=== PATIENT | male | born 1995 | race American Indian/Alaskan Native ===

== ENCOUNTER 2017-07-13 15:56 | Emergency (ER) | payer SELFPAY ==
[2017-07-13] MEDS ORDERED: MORPHINE IV ONE (16:37)
[2017-07-13 16:46] VITALS: BP 125/61
--- NOTE | 2017-07-13 16:57 | XRay Report ---
RIGHT SHOULDER RADIOGRAPHS INDICATION: Right shoulder dislocation, pain. COMPARISON: None similar. FINDINGS: Frontal and attempted Y views of the right shoulder suggest anteroinferior glenohumeral dislocation. No apparent fracture. Intact AC articulation. Normal imaged lung and ribs. CONCLUSION: Right shoulder dislocation, as described. Thank you for the opportunity to participate in this patient's care.
--- NOTE | 2017-07-13 17:03 | Emergency Department Report ---
ED Upper Extremity Inj HPI - General Chief Complaint: Shoulder Injury Stated Complaint: RT SHOULDER Time Seen by Provider: 07/13/17 16:21 Source: patient Mode of arrival: Ambulatory Limitations: No Limitations - History of Present Illness Initial Comments: 21-year-old male who is injured his right shoulder reaching behind himself. No history of shoulder dislocation the past. No numbness tingling. Able to move all digits. Complaint: Injury to:: right -: Sudden Other Extremity Injury: Shoulder: Right Other Injuries: none Handedness: right Place: home Improves With: none Worsens With: none Context: other Associated Symptoms: heard/felt popping sensat. denies: weakness, numbness, neck pain, suspects foreign body, nausea/vomiting Treatments Prior to Arrival: cold therapy - Related Data Previous Rx's Medication Instructions Recorded Last Taken Type Ibuprofen [Motrin] 600 mg PO Q8H PRN #30 tablet 07/13/17 Unknown Rx Allergies Allergy/AdvReac Type Severity Reaction Status Date / Time No Known Allergies Allergy Verified 07/13/17 16:09 ED Review of Systems ROS: Stated complaint: RT SHOULDER Other details as noted in HPI Constitutional: denies: chills, fever Respiratory: denies: see HPI, cough Cardiovascular: denies: chest pain, palpitations Musculoskeletal: denies: back pain, joint swelling, arthralgia Neurological: denies: headache, weakness, numbness Psychiatric: denies: anxiety, depression ED Past Medical Hx - Past Medical History Previous Medical History?: No Hx Asthma: No Hx Dementia: No - Surgical History Past Surgical History?: No - Social History Smoking Status: Current Every Day Smoker Substance Use Type: Alcohol, Marijuana - Medications Home Medications: Home Medications Medication Instructions Recorded Confirmed Last Taken Type Ibuprofen [Motrin] 600 mg PO Q8H PRN #30 tablet 07/13/17 Unknown Rx ED Physical Exam - General Limitations: No Limitations General appearance: alert, in no apparent distress - Head Head exam: Present: atraumatic, normocephalic - Eye Eye exam: Present: normal appearance - Neck Neck exam: Absent: tenderness, lymphadenopathy - Respiratory Respiratory exam: Present: normal lung sounds bilaterally, respiratory distress - Cardiovascular Cardiovascular Exam: Present: regular rate, normal rhythm - Extremities Exam Extremities exam: Present: normal capillary refill - Expanded Upper Extremity Exam Right Shoulder Exam: Present: tenderness, deformity Elbow exam: Present: normal inspection, full ROM, tenderness Hand Wrist exam: Present: normal inspection, full ROM Neurosensory exam: Present: radial nerve intact, ulnar nerve intact, median nerve intact - Neurological Exam Neurological exam: Present: alert, oriented X3 - Psychiatric Psychiatric exam: Present: normal affect ED Course Vital Signs 07/13/17 07/13/17 16:05 16:30 Temperature 98.3 F 98.1 F Pulse Rate 53 L 52 L Respiratory 18 14 Rate Blood Pressure 136/87 Blood Pressure 125/61 [Left] O2 Sat by Pulse 98 Oximetry - Orthopedic Joint Reduction Joint #1 Consent Obtained: verbal consent Time Out Performed: Yes Side: right Joint Reduction Location: shoulder Analgesia: other (morphine 4 mg IV) Shoulder Technique Used (if applicable): scapula manipulation Post-Reduction Neuro Exam: intact Post-Reduction Vascular Exam: intact Post Reduction X-Ray Obtained: Yes Splint Applied: Yes Patient Tolerated Procedure: well ED Medical Decision Making - Medical Decision Making Patient is a 21-year-old male with obvious shoulder dislocation. Patient was medicated with 4 mg of IM morphine and placed in the prone position. His arm is hanging off the bed. I discussed plan to reduce the shoulder with scapular manipulation. Shoulder reduced quickly with scapular manipulation. Patient be placed in sling and will follow up with orthopedics as an outpatient. X-rays reviewed patient's shoulder reduced. Portions of this chart were dictated with dictation software. There may be dictation errors contained within this note. Critical care attestation.: If time is entered above; I have spent that time in minutes in the direct care of this critically ill patient, excluding procedure time. ED Disposition Clinical Impression: Shoulder dislocation Disposition: - TO HOME OR SELFCARE Is pt being admited?: No Condition: Stable Instructions: Shoulder Dislocation (ED) Prescriptions: Ibuprofen [Motrin] 600 mg PO Q8H PRN #30 tablet PRN Reason: Pain Referrals: HELEN NAYLOR MD [Staff Physician] - 3-5 Days
--- NOTE | 2017-07-14 07:38 | XRay Report ---
RIGHT SHOULDER: History: Postreduction film. Dislocation. Findings: Only a single portable AP view of the right shoulder is presented. The anterior, inferior dislocation at the right glenohumeral joint has been reduced since 1630 hrs. No obvious fracture on this single view. Impression: Successful reduction of the right shoulder dislocation.
== END 2017-07-13 17:40 | disposition home or self-care (01) ==
LOC: ED 15:56
DX: S43.004A Unspecified dislocation of right shoulder joint, initial encounter (principal); F17.200 Nicotine dependence, unspecified, uncomplicated; F12.10 Cannabis abuse, uncomplicated; X58.XXXA Exposure to other specified factors, initial encounter; Y93.9 Activity, unspecified; Y92.9 Unspecified place or not applicable; Y99.9 Unspecified external cause status
CPT/HCPCS: 23650; 73030; 96374; 99284; J2270

== ENCOUNTER 2017-09-11 17:08 | Emergency (ER) | payer SELFPAY ==
[2017-09-11 17:16] VITALS: BP 121/74
--- NOTE | 2017-09-11 18:03 | Emergency Department Report ---
ED Upper Extremity Inj HPI - General Chief Complaint: Extremity Injury, Upper Stated Complaint: RIGHT SHOULDER PAIN Source: patient Mode of arrival: Ambulatory Limitations: No Limitations - History of Present Illness Complaint: Injury to:: right -: Gradual, month(s) Other Extremity Injury: Shoulder: Right Other Injuries: none (NONE TODAY) Handedness: right Place: home Improves With: none Worsens With: movement of extremity Associated Symptoms: denies other symptoms - Related Data Previous Rx's Medication Instructions Recorded Last Taken Type Ibuprofen [Motrin] 600 mg PO Q8H PRN #30 tablet 07/13/17 Unknown Rx Allergies Allergy/AdvReac Type Severity Reaction Status Date / Time No Known Allergies Allergy Verified 07/13/17 16:09 ED Review of Systems ROS: Stated complaint: RIGHT SHOULDER PAIN Other details as noted in HPI Comment: All other systems reviewed and negative Musculoskeletal: as per HPI ED Past Medical Hx - Past Medical History Hx Asthma: No Hx Dementia: No - Surgical History Past Surgical History?: No - Social History Smoking Status: Current Every Day Smoker Substance Use Type: Marijuana - Medications Home Medications: Home Medications Medication Instructions Recorded Confirmed Last Taken Type Ibuprofen [Motrin] 600 mg PO Q8H PRN #30 tablet 07/13/17 Unknown Rx ED Physical Exam - General Limitations: No Limitations General appearance: alert - Head Head exam: Present: normocephalic - Eye Eye exam: Present: normal appearance - ENT ENT exam: Present: mucous membranes moist - Neck Neck exam: Present: normal inspection - Respiratory Respiratory exam: Present: normal lung sounds bilaterally - Cardiovascular Cardiovascular Exam: Present: regular rate - GI/Abdominal GI/Abdominal exam: Present: soft, normal bowel sounds. Absent: distended, tenderness, guarding, rebound, rigid, diminished bowel sounds, hyperactive bowel sounds, hypoactive bowel sounds, organomegaly, mass, bruit, pulsatile mass , hernia - Rectal Rectal exam: Present: deferred - exam: Absent: testicular tenderness, urethral discharge, scrotal swelling, vertical testicular lie, circumcision, other (NO DYSURIA. NO CONCERN FOR STD) - Extremities Exam Extremities exam: Present: normal inspection, full ROM, normal capillary refill. Absent: tenderness - Back Exam Back exam: Present: normal inspection - Neurological Exam Neurological exam: Present: alert, oriented X3, normal gait - Psychiatric Psychiatric exam: Present: normal affect, normal mood - Skin Skin exam: Present: warm, dry, intact ED Course Vital Signs 09/11/17 17:11 Temperature 98.4 F Pulse Rate 59 L Respiratory 16 Rate Blood Pressure 121/74 O2 Sat by Pulse 97 Oximetry - Reevaluation(s) Reevaluation #1: 09/11/17 18:32 TO ER TODAY FROM WORK W CO OF R SHOULDER PAIN IN THE AM TRIAGE WHEN HE GOT TO PROVIDER HE SAID HE WAS HERE TO FIGURE OUT WHY HIS SHOULDER KEEPS POPPING OUT THE SHOULDER IS NOT HURTING NOW HE HAS NEVER FOLLOWED UP WE DISCUSSED ORTHO/ MRI ETC AND WE PROCEEDED TO DC WHEN RN WENT TO DC THE PT HE CO N/V THERE IS NO CO OF N/V ON TRIAGE SHEET. HE TOLD RN THAT HE CAN NOT HAVE NOT FOR WORK W N/V ON IT. THE PROVIDER RE-INTERVIEWED PT AND SEVERAL TIMES HE CHANGED HIS STORY ABOUT THE N/V AND HE SAID IT WAS YEST AND THEN HE SAID TOD AY AFTER EATING HIS MOMS GREASY NECK BONE SOUP. ABD EXAM WNL SNT HR N BP WNL NO FEVER NO CVA PT HAS BEEN IN ER COUPLE HOURS AND HAS HAD NO N/V AFTER LONG DISCUSSION PT DC HOME W FOLLOW UP PLAN ED Medical Decision Making - Medical Decision Making SEE NOTE - Differential Diagnosis ACUTE VS CHRONIC SHOULDER PAIN Critical care attestation.: If time is entered above; I have spent that time in minutes in the direct care of this critically ill patient, excluding procedure time. ED Disposition Clinical Impression: Shoulder pain Disposition: DC-01 TO HOME OR SELFCARE Is pt being admited?: No Does the pt Need Aspirin: No Condition: Stable Instructions: Shoulder Dislocation (ED) Additional Instructions: USE CAUTION WE DISCUSSED WITH SHOULDER THAT IS KNOWN TO POP OUT MOTRIN FOR PAIN FOLLOW UP ORTHO FOR DEFINITIVE CARE IF N/V RETURNS FOLLOW UP HERE OR AT THE PCP Referrals: HELEN NAYLOR MD [Staff Physician] - 3-5 Days Forms: Work/School Release Form(ED) Time of Disposition: 18:03
== END 2017-09-11 18:45 | disposition home or self-care (01) ==
LOC: ED 17:08
DX: M25.511 Pain in right shoulder (principal); F17.210 Nicotine dependence, cigarettes, uncomplicated; F12.10 Cannabis abuse, uncomplicated
CPT/HCPCS: 99282

== ENCOUNTER 2017-12-18 11:59 | Emergency (ER) | payer SELFPAY ==
--- NOTE | 2017-12-18 12:49 | XRay Report ---
XRAY RIGHT SHOULDER 2 VIEWS: 12/18/17 11:59:00 CLINICAL: Right shoulder pain. History of dislocation. COMPARISON: 07/13/17 FINDINGS: The femoral head is dislocated anteriorly and inferiorly. No fracture. Normal acromioclavicular joint. The soft tissues. IMPRESSION: Anterior shoulder dislocation with no fracture.
[2017-12-18] MEDS ORDERED: XYLOCAINE 1% 20 mL ONE (13:38)
[2017-12-18] MEDS ORDERED: XYLOCAINE 1% MPF 5 mL INFILTRATI ONE (13:51)
--- NOTE | 2017-12-18 14:04 | Emergency Department Report ---
Upper Extremity - HPI Chief Complaint: Extremity Injury, Upper Stated Complaint: RIGHT SHOULDER DISLOCATION Time Seen by Provider: 12/18/17 13:34 Upper Extremity: Right Shoulder Occurred When: Today Mechanism: Hyperextension Severity: moderate Symptoms: Yes Pain with Movement, Yes Deformity, Yes Limited Range of Movement, No Numbness, No Weakness, No Swelling, No Bruising/Ecchymosis, No Laceration or Abrasion Other History: Healthy 21-year-old male with history of recurrent anterior shoulder dislocation. He was laying on his hands while in bed. When he sneezed , his shoulder dislocated at 9:30 AM. Moderate pain. No numbness. No weakness. ED Review of Systems ROS: Stated complaint: RIGHT SHOULDER DISLOCATION Other details as noted in HPI Comment: All other systems reviewed and negative Respiratory: denies: cough Cardiovascular: denies: chest pain ED Past Medical Hx - Past Medical History Previous Medical History?: No Hx Asthma: No Hx Dementia: No - Surgical History Past Surgical History?: No - Social History Smoking Status: Never Smoker Substance Use Type: None - Medications Home Medications: Home Medications Medication Instructions Recorded Confirmed Last Taken Type Ibuprofen [Motrin] 600 mg PO Q8H PRN #30 tablet 07/13/17 Unknown Rx Doxycycline [Vibramycin CAP] 100 mg PO Q12HR #14 capsule 09/26/17 Unknown Rx Levofloxacin [Levaquin TAB] 500 mg PO QDAY #7 tablet 09/26/17 Unknown Rx Upper Extremity Exam - Exam General: Vital signs noted. No distress. Alert and acting appropriately. Head and Torso: No HEENT Abnormality, No Neck Tenderness, No Chest/Lungs Abnormality, No Abdominal Tenderness, No Back Tenderness Shoulder Exam: Yes Shoulder Deformity, No Shoulder Tenderness, No Clavicle Tenderness, No Normal Range of Motion in Shoulder, No AC Joint Tenderness Arm Exam: No Arm/Humerus Tenderness, No Arm Deformity Elbow: Yes Normal Range of Motion in Elbow, No Elbow Tenderness, No Elbow Deformity Forearm: Yes Pain with Pronation, Yes Pain with Supination, No Forearm Tenderness, No Forearm Deformity Wrist: Yes Normal ROM in Wrist, No Wrist Tenderness, No Wrist Deformity CMS Exam: Yes Normal Distal Pulses, Yes Normal Capillary Refill, Yes Normal Distal Sensation ED Course Vital Signs 12/18/17 12/18/17 12:10 13:47 Temperature 97.6 F Pulse Rate 53 L Respiratory 16 18 Rate Blood Pressure 118/57 O2 Sat by Pulse 99 Oximetry - Reevaluation(s) Reevaluation #1: 12/18/17 14:02 Mr. Tavares allowed verbal informed consent for for a joint injection and shoulder reduction. After joint injection was able to use Milch technique - Joint Aspiration/Injection Time Out Performed: Yes Indications: injection of medication Side of Body: right Joint Aspirated: shoulder Ultrasound Guidance: No Local Anesthesia Used: Lidocaine 1% Amount of Anesthesia Used (mls): 20 Needle Size Used: 20G Syringe Size Used: 5cc Medication Injected, if any: Lidocaine Amount of Medication Injected (mls): 20 Patient Tolerated Procedure: well Complications: none - Orthopedic Joint Reduction Joint #1 Time Out Performed: Yes Side: right Joint Reduction Location: shoulder Analgesia: other (joint injection lidocaine 1%) Local Anesthetic Used: Lidocaine 1% Amount of Anesthetic Used (mls): 20 Shoulder Technique Used (if applicable): Milch Post-Reduction Neuro Exam: intact Post-Reduction Vascular Exam: intact Post Reduction X-Ray Obtained: Yes Post Reduction X-Ray Results: reduced ED Medical Decision Making - Medical Decision Making Mr. Cordova presents with anterior shoulder relocation. Patient had shoulder reduced using mulch technique after joint was injected with lidocaine. He was made aware of the Hill-Sachs impaction injury. He understands that he will need orthopedic intervention or evaluation in the future. Given sling and discharged home in good condition Critical care attestation.: If time is entered above; I have spent that time in minutes in the direct care of this critically ill patient, excluding procedure time. ED Disposition Clinical Impression: Shoulder dislocation, recurrent Disposition: DC-01 TO HOME OR SELFCARE Is pt being admited?: No Does the pt Need Aspirin: No Condition: Good Referrals: HELEN NAYLOR MD [Staff Physician] - 3-5 Days Time of Disposition: 14:59
--- NOTE | 2017-12-18 14:46 | XRay Report ---
FINAL REPORT PROCEDURE: XR SHOULDER 2+V RT TECHNIQUE: Right shoulder, three views HISTORY: shoulder POST REDUCTION COMPARISON: No prior studies are available for comparison. FINDINGS: On the internal rotation view, there appears to be a Hill-Sachs impaction injury of the posterior lateral humeral head. No displaced fractures are seen. No focal osseous lesion is seen. No radiopaque foreign body. IMPRESSION: Probable Hill-Sachs impaction injury of the posterior lateral humeral head
[2017-12-18 15:10] VITALS: BP 164/72
== END 2017-12-18 15:10 | disposition home or self-care (01) ==
LOC: ED 11:59
DX: M24.411 Recurrent dislocation, right shoulder (principal)

== ENCOUNTER 2019-02-20 07:15 | Emergency (ER) | payer SELFPAY ==
[2019-02-20 07:22] VITALS: BP 142/75
--- NOTE | 2019-02-20 10:34 | Emergency Department Report ---
Chief Complaint: Urogenital-Male Stated Complaint: PENIS/DISCHARGE Time Seen by Provider: 02/20/19 09:58 - HPI History of Present Illness: Patient is 23-year-old black male whose presenting with penile discharge for the past 2 days. Patient denies any fevers chills nausea vomiting diarrhea abdominal pain and testicular pain at this time. Patient has had sex recently - ROS Review of Systems: All other systems are negative I have been reviewed - Exam Vital Signs: Vital Signs 02/20/19 07:20 Temperature 97.8 F Pulse Rate 58 L Respiratory 16 Rate Blood Pressure 142/75 O2 Sat by Pulse 100 Oximetry Physical Exam: Patient is alert and oriented 3 in no acute distress abdomen is soft and nontender. MSE screening note: Focused history and physical exam performed. Due to findings the following was ordered: ED Medical Decision Making - Medical Decision Making Patient with a non-medical emergency at this time. Patient is opted to not pale $150 co-pay and will be referred to the health department was outside medical clinic. ED Disposition for MSE Clinical Impression: Urethritis Disposition: MED SCREENING EXAM-LEFT Is pt being admited?: No Does the pt Need Aspirin: No Condition: Stable Instructions: Nonspecific Urethritis in Men (ED) Referrals: SALAS WARD MD [Primary Care Provider] - 3-5 Days Forms: STI Treatment and Prevention Time of Disposition: 10:33
[2019-02-20] MEDS ORDERED: XYLOCAINE 1% MPF 5 mL INFILTRATI ONE (12:27)
[2019-02-20] MEDS ORDERED: FLAGYL PO ONE (12:27)
[2019-02-20] MEDS ORDERED: ZITHROMAX PO ONE (12:27)
[2019-02-20] MEDS ORDERED: ROCEPHIN IM ONE (12:27)
== END 2019-02-20 13:27 | disposition home or self-care (01) ==
LOC: ED 07:15
DX: N34.2 Other urethritis (principal)
CPT/HCPCS: 99282; J0696

== ENCOUNTER 2020-09-25 06:51 | Emergency (ER) | payer SELFPAY ==
[2020-09-25 08:48] LABS: Bacteria,Urine 1+ /HPF (Negative); Bilirubin,Urine NEG (Negative); Blood,Urine NEG (Negative); Color,Urine Yellow (Yellow); Mucus,Urine FEW /HPF; Protein,Urine <15 mg/dL mg/dL (Negative)
[2020-09-25] MEDS ORDERED: AZITHROMYCIN 250 MG TAB PO ONE (09:15)
[2020-09-25] MEDS ORDERED: LIDOCAINE-MPF (1%) 10 MG/1 ML VIAL 5 ML INFILTRATI ONE (09:15)
[2020-09-25 09:25] VITALS: BP 115/31
--- NOTE | 2020-09-25 09:26 | Emergency Department Report ---
ED Male HPI - General Chief complaint: Urogenital-Male Stated complaint: PENILE DISCHARGE Time Seen by Provider: 09/25/20 07:49 Source: patient Mode of arrival: Ambulatory Limitations: No Limitations - History of Present Illness Initial comments: This is a 25-year-old male nontoxic, well nourished in appearance, no acute signs of distress presents to the ED with c/o of penile discharge. Patient denies any testicular pain or swelling. Patient denies any penile ulcers or lesions. Patient denies any nausea, vomiting, chest pain, shortness of breathe, fever, chills, headache, back pain, numbness, tingling, stiff neck. Patient denies any urinary symptoms. Patient denies any allergies or PMH. MD Complaint: penile discharge -: days(s) Location: penis Radiation: none Severity: mild Severity scale (0 -10): 0 Improves with: none Worsens with: none discharge. denies: swelling, mass, rash, urinary retention, blood in urine, dysuria, fever, nausea/vomiting, incontinence - Related Data Sexually active: Yes Previous Rx's Medication Instructions Recorded Last Taken Type Ibuprofen [Motrin] 600 mg PO Q8H PRN #30 tablet 07/13/17 Unknown Rx DOXYCYCLINE Hyclate [Vibramycin 100 mg PO Q12HR #14 capsule 09/26/17 Unknown Rx CAP] levoFLOXacin [Levaquin TAB] 500 mg PO QDAY #7 tablet 09/26/17 Unknown Rx Allergies Allergy/AdvReac Type Severity Reaction Status Date / Time No Known Allergies Allergy Verified 02/20/19 07:20 ED Review of Systems ROS: Stated complaint: PENILE DISCHARGE Other details as noted in HPI Constitutional: denies: chills, fever Eyes: denies: eye pain, eye discharge, vision change ENT: denies: ear pain, throat pain Respiratory: denies: cough, shortness of breath, wheezing Cardiovascular: denies: chest pain, palpitations Endocrine: no symptoms reported Gastrointestinal: denies: abdominal pain, nausea, diarrhea Genitourinary: discharge. denies: urgency, dysuria, frequency, hematuria, testicular pain, testicular mass Musculoskeletal: denies: back pain, joint swelling, arthralgia Skin: denies: rash, lesions Neurological: denies: headache, weakness, paresthesias Psychiatric: denies: anxiety, depression Hematological/Lymphatic: denies: easy bleeding, easy bruising ED Past Medical Hx - Past Medical History Hx Asthma: No Hx Dementia: No - Social History Smoking Status: Never Smoker Substance Use Type: None - Medications Home Medications: Home Medications Medication Instructions Recorded Confirmed Last Taken Type Ibuprofen [Motrin] 600 mg PO Q8H PRN #30 tablet 07/13/17 Unknown Rx DOXYCYCLINE Hyclate [Vibramycin 100 mg PO Q12HR #14 capsule 09/26/17 Unknown Rx CAP] levoFLOXacin [Levaquin TAB] 500 mg PO QDAY #7 tablet 09/26/17 Unknown Rx ED Physical Exam - General Limitations: No Limitations General appearance: alert, in no apparent distress - Head Head exam: Present: atraumatic, normocephalic - Eye Eye exam: Present: normal appearance - Neck Neck exam: Present: normal inspection, full ROM - Respiratory Respiratory exam: Absent: respiratory distress - Cardiovascular Cardiovascular Exam: Present: regular rate - GI/Abdominal GI/Abdominal exam: Present: soft, normal bowel sounds. Absent: distended, tenderness, rebound, rigid, diminished bowel sounds - Rectal Rectal exam: Present: deferred - Extremities Exam Extremities exam: Present: full ROM - Back Exam Back exam: Present: full ROM. Absent: tenderness, CVA tenderness (R), CVA tenderness (L), muscle spasm, paraspinal tenderness, vertebral tenderness, rash noted - Neurological Exam Neurological exam: Present: alert, oriented X3, normal gait - Psychiatric Psychiatric exam: Present: normal affect, normal mood - Skin Skin exam: Present: warm, dry, intact, normal color. Absent: rash ED Course Vital Signs 09/25/20 07:02 Temperature 98.2 F Pulse Rate 69 Respiratory 20 Rate Blood Pressure 115/31 O2 Sat by Pulse 98 Oximetry - Reevaluation(s) Reevaluation #1: 09/25/20 09:25 Patient is speaking in full sentences with no signs of distress noted. ED Medical Decision Making - Medical Decision Making This is a 25-year-old female that presents with possible STD. Patient is stable was examined by me. There is no abdominal tenderness. No pelvic pain. UA obtained. Wet prep obtained. Gonorrhea chlamydia swab pending. Patient was instructed to return in 3-5 days for GC results. Patient wanted empirical tr eatment so patient received 250 mg Rocephin and 1 g of azithromycin by mouth. Patient was instructed to Follow-up with a primary care doctor in 3-5 days or if symptoms worsen and continue return to emergency room as soon as possible. At time of discharge, the patient does not seem toxic or ill in appearance. No acute signs of distress noted. Patient agrees to discharge treatment plan of care. No further questions noted by the patient. Critical care attestation.: If time is entered above; I have spent that time in minutes in the direct care of this critically ill patient, excluding procedure time. ED Disposition Clinical Impression: Possible exposure to STD Disposition: DC-01 TO HOME OR SELFCARE Is pt being admited?: No Does the pt Need Aspirin: No Condition: Stable Instructions: Safe Sex Additional Instructions: Follow-up with a primary care doctor in 3-5 days or if symptoms worsen and continue return to emergency room as soon as possible. Return and 3 to 5 days for gonorrhea and Chlamydia results. Referrals: [facility] MD GLENROY [Primary Care Provider] - 3-5 Days PRIMARY MD JOSÉ MIGUEL [Referring] - 3-5 Days MAIKOL VILLALOBOS MD [Staff Physician] - 3-5 Days
== END 2020-09-25 09:49 | disposition home or self-care (01) ==
LOC: ED 06:51
DX: R36.9 Urethral discharge, unspecified (principal)
CPT/HCPCS: 81001; 87591; 96372; 99283; J0696